=== PATIENT | female | born 1960 | race African-American/Black ===

== ENCOUNTER → 2016-08-27 | Outpatient (CLI) | payer MEDICARE | LOC: WI 08:43 | PROVIDERS: ATTEND Nurse Practitioner Psychiatric/Mental Health | DX: R10.9 Unspecified abdominal pain (principal) | CPT/HCPCS: 76700 ==

== ENCOUNTER 2016-11-11 09:29 | Emergency (ER) | payer MEDICARE ==
--- NOTE | 2016-11-11 09:54 | ER Document Report ---
ED Medical Screen (RME) - General Chief Complaint: Flank Pain Stated Complaint: LEFT SIDA PAIN Time Seen by Provider: 11/11/16 09:42 Notes: Patient is complaining of pain in her upper left side, just below the rib margin in the left mid axillary line for about 4 or 5 months. She says it feels like a spasm and comes and goes in waves. She has seen her local provider and has been worked up with ultrasound and other lab studies, but says she has never had a CT scan. She did have a problem with her pancreas 5 or 6 months ago and had a stent placed in her pancreas [place] about 6 months ago. Her pain has continued. She has had nausea but not vomiting. No diarrhea. Having normal bowel movements. Some burning with urination. Denies fever. Patient has had an appendectomy, hysterectomy, cholecystectomy, and an umbilical hernia repair. PMH: Hypertension, chronic back pain, migraine headaches. TRAVEL OUTSIDE OF THE [place] IN LAST 30 DAYS: No - Related Data Allergies/Adverse Reactions: amoxicillin trihydrate [From Augmentin] Allergy (Intermediate, Verified 09:31) rash Potassium Clavulanate * [From Augmentin] Allergy (Intermediate, Verified 09:31) rash Sulfa (Sulfonamide Antibiotics) Allergy (Intermediate, Verified 11/11/16 09:31) rash Past Medical History - Past Medical History Cardiac Medical History: Reports: Hx Hypertension Neurological Medical History: Reports: Hx Migraine Renal/ Medical History: Denies: Hx Peritoneal Dialysis Malignancy Medical History: Reports: Hx Breast Cancer Past Surgical History: Reports: Hx Breast Surgery, Hx Cholecystectomy, Hx Hysterectomy Physical Exam - Vital signs Vitals: Temp Pulse Resp BP Pulse Ox 98.1 F 107 H 18 181/110 H 100 11/11/16 09:31 11/11/16 09:31 11/11/16 09:31 11/11/16 09:31 11/11/16 09:31 Course - Vital Signs Vital signs: Temp Pulse Resp BP Pulse Ox 98.1 F 107 H 18 181/110 H 100 11/11/16 09:31 11/11/16 09:31 11/11/16 09:31 11/11/16 09:31 11/11/16 09:31
--- NOTE | 2016-11-11 10:13 | ER Document Report ---
ED General - General Mode of Arrival: Ambulatory Information source: Patient TRAVEL OUTSIDE OF THE [place] IN LAST 30 DAYS: No - HPI Onset: Other - Refer to HPI notes Associated symptoms: Nausea, Other - burning with urination Similar symptoms previously: Yes Recently seen / treated by doctor: Yes - Dr. Vo <JED ROBLES - Last Filed: 11/11/16 10:29> <WOOD CÁRDENAS - Last Filed: 11/11/16 13:27> - General Chief Complaint: Flank Pain Stated Complaint: LEFT SIDA PAIN Time Seen by Provider: 11/11/16 09:42 Notes: Patient is a 56-year-old female presenting to the emergency department for pain in her left rib and left side. Patient states she has had this pain for about 5 months. Patient states that her pain is waxing and waning and is like a spasm. Patient states that when the pain is worse and more intense than it has been in the past. Patient is able to relieve the pain some if she stands straight or twists a certain way while standing. Patient told the physician in triage that she also had some burning with urination and some nausea. Patient has seen her primary care physician, Dr. Vo, about this pain and has had an ultrasound and other labs completed but has not had a CT. Patient has chronic back pain and takes 10 mg of Percocet, 3 times a day. Patient has degenerative disc disease and arthritis in her back. Patient also had a pancreatic stent placed 5-6 months ago in [place]; patient states the stent is out now. Patient denies fever, vomiting, or diarrhea. (JED ROBLES) - Related Data Allergies/Adverse Reactions: amoxicillin trihydrate [From Augmentin] Allergy (Intermediate, Verified 09:31) rash Potassium Clavulanate * [From Augmentin] Allergy (Intermediate, Verified 09:31) rash Sulfa (Sulfonamide Antibiotics) Allergy (Intermediate, Verified 11/11/16 09:31) rash Past Medical History - General Information source: Patient - Social History Smoking Status: Never Smoker Family History: Hypertension Patient has suicidal ideation: No Patient has homicidal ideation: No - Past Medical History Cardiac Medical History: Reports: Hx Hypertension Neurological Medical History: Reports: Hx Migraine Malignancy Medical History: Reports: Hx Breast Cancer Musculoskeltal Medical History: Reports Hx Arthritis, Reports Other - Degenerative disc disease Past Surgical History: Reports: Hx Appendectomy, Hx Breast Surgery - left lumpectomy, Hx Cholecystectomy, Hx Hysterectomy, Hx Pancreatic Surgery - stent placed <JED ROBLES - Last Filed: 11/11/16 10:29> Review of Systems - Review of Systems Constitutional: No symptoms reported EENT: No symptoms reported Cardiovascular: No symptoms reported Respiratory: No symptoms reported Gastrointestinal: See HPI, Nausea Genitourinary: See HPI, Burning Female Genitourinary: No symptoms reported Musculoskeletal: See HPI Skin: No symptoms reported Hematologic/Lymphatic: No symptoms reported Neurological/Psychological: No symptoms reported -: Yes All other systems reviewed and negative <JED ROBLES - Last Filed: 11/11/16 10:29> Physical Exam - Vital signs Interpretation: Hypertensive - General General appearance: Appears well, Alert In distress: Mild - HEENT Head: Normocephalic, Atraumatic Eyes: Normal Pupils: PERRL Mucous membranes: Moist - Respiratory Respiratory status: No respiratory distress Chest status: Nontender Breath sounds: Normal Chest palpation: Normal - Cardiovascular Rhythm: Regular Heart sounds: Normal auscultation Murmur: No - Abdominal Inspection: Normal Distension: No distension Bowel sounds: Normal Tenderness: Nontender Organomegaly: No organomegaly - Back Back: Tender - tenderness over the left posterior lateral ribs; patient describes pain to be in this area and underneath her ribs as well - Extremities General upper extremity: Normal inspection, Normal ROM, Normal strength General lower extremity: Normal inspection, Normal ROM, Normal strength - Neurological Neuro grossly intact: Yes Cognition: Normal Orientation: AAOx4 [place] Coma Scale Eye Opening: Spontaneous [place] Coma Scale Verbal: Oriented [place] Coma Scale Motor: Obeys Commands [place] Coma Scale Total: 15 Speech: Normal - Psychological Associated symptoms: Normal affect, Normal mood - Skin Skin Temperature: Warm Skin Moisture: Dry <EJD ROBLES - Last Filed: 11/11/16 10:29> <WOOD CÁRDENAS - Last Filed: 11/11/16 13:27> - Vital signs Vitals: Temp Pulse Resp BP Pulse Ox 98.1 F 107 H 18 181/110 H 100 11/11/16 09:31 11/11/16 09:31 11/11/16 09:31 11/11/16 09:31 11/11/16 09:31 Course - Laboratory Result Diagrams: 11/11/16 11:27 11/11/16 11:27 - Diagnostic Test Radiology reviewed: Image reviewed, Reports reviewed - Double contrasted CT scan does not show any acute abnormalities. There is some ductal dilatation consistent with prior cholecystectomy. <WOOD CÁRDENAS - Last Filed: 11/11/16 13:27> - Vital Signs Vital signs: Temp Pulse Resp BP Pulse Ox 98.1 F 107 H 18 181/110 H 100 11/11/16 09:31 11/11/16 09:31 11/11/16 09:31 11/11/16 09:31 11/11/16 09:31 - Laboratory Laboratory results interpreted by me: 11/11/16 11/11/16 09:52 11:27 Est GFR (Non-Af Amer) 51 L Urine Blood SMALL H Ur Leukocyte Esterase TRACE H Discharge <JED ROBLES - Last Filed: 11/11/16 10:29> <WOOD CÁRDENAS - Last Filed: 11/11/16 13:27> - Discharge Clinical Impression: Left flank pain, chronic High blood pressure Qualifiers: Hypertension type: essential hypertension Qualified Code(s): I10 - Essential ( primary) hypertension Condition: Stable Disposition: HOME, SELF-CARE Additional Instructions: Your lab work and CT scans do not show any abnormalities. Your left flank and rib pain appears to be musculoskeletal in origin. Your blood pressure was elevated today. Be sure you are taking your blood pressure medications. You should continue your regular medications and follow-up with your doctor for further treatment as needed. RETURN TO THE EMERGENCY ROOM IF ANY NEW OR WORSENING SYMPTOMS. Scribe Attestation: 11/11/16 13:27 I personally performed the services described in the documentation, reviewed and edited the documentation which was dictated to the scribe in my presence, and it accurately records my words and actions. (WOOD CÁRDENAS) Scribe Documentation - Scribe Written by Ashok:: Ashok Farmer, 11/11/16 10:43 acting as scribe for :: Gino <JED ROBLES - Last Filed: 11/11/16 10:29>
[2016-11-11 10:14] LABS: APPEARANCE,URINE CLEAR; BILIRUBIN,URINE NEGATIVE (NEGATIVE); GLUCOSE, URINE NEGATIVE (NEGATIVE); KETONES,URINE NEGATIVE (NEGATIVE); LEUKOCYTE ESTERASE,URINE TRACE (NEGATIVE); NITRITE,URINE NEGATIVE (NEGATIVE); PROTEIN,URINE NEGATIVE (NEGATIVE); URINE SPECIFIC GRAVITY 1.003; UROBILINOGEN,URINE NEGATIVE mg/dL (<2.0)
--- NOTE | 2016-11-11 10:43 | RADIOLOGY REPORT (SQ) ---
EXAM DESCRIPTION: CHEST PA/LAT COMPLETED DATE/TIME: 11/11/2016 10:30 am REASON FOR STUDY: Pain in lower left side/rib margin COMPARISON: Two-view chest 07/29/2012 EXAM PARAMETERS: NUMBER OF VIEWS: two views TECHNIQUE: Digital Frontal and Lateral radiographic views of the chest acquired. RADIATION DOSE: NA LIMITATIONS: none FINDINGS: LUNGS AND PLEURA: No opacities, masses or pneumothorax. No pleural effusion. MEDIASTINUM AND HILAR STRUCTURES: No masses or contour abnormalities. HEART AND VASCULAR STRUCTURES: Heart normal size. No evidence for failure. BONES: No acute findings. HARDWARE: Surgical clips left axilla. Clips right upper quadrant post cholecystectomy OTHER: No other significant finding. IMPRESSION: No acute findings TECHNICAL DOCUMENTATION: JOB ID: [id number] [employer]- All Rights Reserved
[2016-11-11 11:43] LABS: ABSOLUTE EOSINOPHILS # (AUTO) 0.1 10^3/uL (0.0-0.6); ABSOLUTE LYMPHOCYTES (AUTO) 2.1 10^3/uL (0.5-4.7); ABSOLUTE MONOCYTES (AUTO) 0.5 10^3/uL (0.1-1.4); ABSOLUTE NEUT (AUTO) 3.1 10^3/uL (1.7-8.2); BASOPHILS % (AUTO) 0.5 % (0-2); EOSINOPHILS % (AUTO) 1.4 % (0-6); HEMATOCRIT 38.4 % (36.0-47.0); HEMOGLOBIN 12.7 g/dL (12.0-15.5); HGB HCT DIFFERENCE -0.3; LYMPHOCYTES % (AUTO) 35.8 % (13-45); MEAN CORPUSCULAR HEMOGLOBIN 29.1 pg (27.0-33.4); MEAN CORPUSCULAR HGB CONC 33.1 g/dL (32.0-36.0); MEAN CORPUSCULAR VOLUME 88 fl (80-97); MONOCYTES % (AUTO) 9.4 % (3-13); RED BLOOD COUNT 4.36 10^6/uL (3.72-5.28); RED CELL DISTRIBUTION WIDTH 12.6 % (11.5-14.0); SEGMENTED NEUTROPHILS % (AUTO) 52.9 % (42-78); WHITE BLOOD COUNT 5.8 10^3/uL (4.0-10.5)
[2016-11-11 11:56] LABS: ALANINE AMINOTRANSFERASE 21 U/L (9-52); ALBUMIN 4.1 g/dL (3.5-5.0); ALKALINE PHOSPHATASE 89 U/L (38-126); ANION GAP 10 (5-19); ASPARTATE AMINO TRANSFERASE 27 U/L (14-36); BILIRUBIN,DIRECT 0.2 mg/dL (0.0-0.4); BILIRUBIN,TOTAL 0.5 mg/dL (0.2-1.3); BLOOD UREA NITROGEN 10 mg/dL (7-20); CALCIUM 9.8 mg/dL (8.4-10.2); CARBON DIOXIDE 27 mmol/L (22-30); CHLORIDE 105 mmol/L (98-107); CREATININE RESULT 1.11 mg/dL (0.52-1.25); GLUCOSE 92 mg/dL (75-110); LIPASE 150.3 U/L (23-300); POTASSIUM 4.2 mmol/L (3.6-5.0); SODIUM 142.1 mmol/L (137-145); TOTAL PROTEIN 7.7 g/dL (6.3-8.2)
--- NOTE | 2016-11-11 13:05 | RADIOLOGY REPORT (SQ) ---
EXAM DESCRIPTION: CT ABD/PELVIS WITH IV ORAL COMPLETED DATE/TIME: 11/11/2016 12:41 pm REASON FOR STUDY: pain in the left side/LUQ COMPARISON: 10/16/2015 TECHNIQUE: CT scan of the abdomen and pelvis performed using helical scanning technique with dynamic intravenous contrast injection. Oral contrast. Images reviewed with lung, soft tissue, and bone win dows. Reconstructed coronal and sagittal MPR images reviewed. Delayed images for evaluation of the ur inary system also acquired. All images stored on PACS. All CT scanners at this facility use dose modulation, iterative reconstruction, and/or weight based d osing when appropriate to reduce radiation dose to as low as reasonably achievable (ALARA). [facility]: Dose Right [facility]: CareDose [facility]: Dose Right [facility]: Teradose 4D [facility]: Probe Manufacturing CONTRAST TYPE AND DOSE: 77mL Isovue 370- low osmolar. RENAL FUNCTION: Creatinine 1.1 BUN 10 RADIATION DOSE: 19.7mGy. LIMITATIONS: None. FINDINGS: LOWER CHEST: No significant findings. No nodules or infiltrates. LIVER: There is mild intrahepatic ductal dilatation that appears to be associated with a prior cholec ystectomy. The liver is otherwise unremarkable. SPLEEN: Normal size. No focal lesions. PANCREAS: No masses. No significant calcifications. No adjacent inflammation or peripancreatic fluid collections. Pancreatic duct not dilated. GALLBLADDER: Surgically absent. ADRENAL GLANDS: No significant masses or asymmetry. RIGHT KIDNEY AND URETER: No solid masses. No significant calcifications. No hydronephrosis or hyd roureter. LEFT KIDNEY AND URETER: No solid masses. No significant calcifications. No hydronephrosis or hydr oureter. AORTA AND VESSELS: No aneurysm. No dissection. Renal arteries, SMA, celiac without stenosis. RETROPERITONEUM: No retroperitoneal adenopathy, hemorrhage or masses. BOWEL AND PERITONEAL CAVITY: No masses or inflammatory changes. No free fluid or peritoneal masses. APPENDIX: Normal. PELVIS: The uterus is absent. There is no adnexal mass or fluid collection. The urinary bladder is normal. ABDOMINAL WALL: No masses. No hernias. BONES: No significant or acute findings. OTHER: No other significant finding. IMPRESSION: 1. Mild ductal dilatation secondary to prior cholecystectomy. 2. No acute abnormality is seen in the abdomen or pelvis. TECHNICAL DOCUMENTATION: JOB ID: [id number] Quality ID # [id number]: Final reports with documentation of one or more dose reduction techniques (e.g., Au tomated exposure control, adjustment of the mA and/or kV according to patient size, use of iterative reconstruction technique) 2010 [employer]- All Rights Reserved
[2016-11-11 13:29] VITALS: BP 124/87
== END 2016-11-11 13:35 | disposition home or self-care (01) ==
LOC: ER 09:29
DX: R10.9 Unspecified abdominal pain (principal); G89.29 Other chronic pain; I10 Essential (primary) hypertension; R30.0 Dysuria; Z85.3 Personal history of malignant neoplasm of breast; Z90.49 Acquired absence of other specified parts of digestive tract; Z90.710 Acquired absence of both cervix and uterus; Z88.2 Allergy status to sulfonamides; Z88.0 Allergy status to penicillin
CPT/HCPCS: 36415; 71020; 74177; 80053; 81001; 83690; 85025; 99284

== ENCOUNTER → 2017-03-18 | Outpatient (CLI) | payer MEDICARE ==
--- NOTE | 2017-03-18 17:55 | WOMENS IMAGING REPORT ---
EXAM DESCRIPTION: 3D SCREENING MAMMO BILAT COMPLETED DATE/TIME: 03/18/2017 1:22 pm REASON FOR STUDY: ROUTINE SCREENING; Z12.31 Z12.31 ENCNTR SCREEN MAMMOGRAM FOR MALIGNANT NEOPLASM O F RIMA COMPARISON: Multiple since 2009 TECHNIQUE: Standard craniocaudal and mediolateral oblique views of each breast recorded using digita l acquisition and breast tomosynthesis. LIMITATIONS: None. FINDINGS: No masses, calcifications or architectural distortion. No areas of suspicion. Read with the assistance of CAD. .[facility] - R2 Cenova Version 1.3 .[facility] - R2 Cenova Version 1.3 .[facility] - R2 Cenova Version 2.4 .[facility] - R2 Cenova Version 2.4 .[facility] - R2 [employer] Organizational Version 9.2 IMPRESSION: NORMAL MAMMOGRAM. BIRADS 1. BREAST DENSITY: d. The breasts are extremely dense, which lowers the sensitivity of mammography. BIRAD: 1 NEGATIVE RECOMMENDATION: ROUTINE SCREENING Please continue yearly bilateral screening tomosynthesis in March 2018. COMMENT: The patient has been notified of the results by letter per [place] requirements. Additional no tification policies are in place for contacting patient with suspicious or incomplete findings. Quality ID #225: The [employer] recommends an annual screening mammogram for women aged 40 years or over. This facility utilizes a reminder system to ensure that all patients receive reminder letters, and/or direct phone calls for appointments. This includes reminders for routine scr eening mammograms, diagnostic mammograms, or other Breast Imaging Interventions when appropriate. Th is patient will be placed in the appropriate reminder system. The [employer] (ACR) has developed recommendations for screening MRI of the breast s in certain patient populations, to be used in conjunction with mammography. Breast MRI surveillanc e may be appropriate for women with more than 20% lifetime risk of developing breast cancer as deter mined by genetic testing, significant family history of the disease, or history of mantle radiation f or Hodgkins Disease. ACR Practice Guidelines 2008. DBT Technology DBT is a type of tomographic mammography. With conventional mammography, overlapping breast tissue ma y make lesions difficult to detect, even with good compression. DBT uses an x-ray tube that rotates a round the breast, taking images at different angles. These images are then combined to create thin sl ices of the breast that the radiologist can view as a 3D reconstruction. The [employer] unit can perform full-field digital mammograms (2D imaging); or DBT (3D imaging); or both, in a combination mode that quickly performs both the mammogram and the tomosynthesis scan while the breast is still compressed. PQRS 6045F: Fluoroscopic imaging is not utilized for breast tomosynthesis. TECHNICAL DOCUMENTATION: FINDING NUMBER: (1) ASSESSMENT: (1) JOB ID: [id number] [employer]- All Rights Reserved
== END ==
LOC: RAD 13:01
PROVIDERS: ATTEND Internal Medicine Geriatric Medicine
DX: Z12.31 Encounter for screening mammogram for malignant neoplasm of breast (principal)
CPT/HCPCS: 77063; G0202; 77067

== ENCOUNTER 2017-08-14 13:33 | Emergency (ER) | payer MEDICARE, MEDICAID ==
[2017-08-14] MEDS ORDERED: ACETAMINOPHEN 325 MG TABLET PO ONE (14:53)
--- NOTE | 2017-08-14 14:53 | ER Document Report ---
HPI - HPI Patient complains to provider of: right SC joint swelling Pain Level: 3 Context: Patient is a 57-year-old female presents emergency department with right SC joint swelling. Patient states that she has had a cough for a couple of days. She is having a coughing fit last evening when she got up to go to the bathroom and took the mirror and she noticed some swelling. She states that today she had some pain lifting her shoulder but otherwise denies any direct shoulder pain , trauma. She also admits to discomfort with neck rotation along her right SCM. Otherwise healthy female with a history of breast cancer that is in remission - REPRODUCTIVE Reproductive: DENIES: : Past Medical History - Social History Smoking Status: Never Smoker Family History: Hypertension - Past Medical History Cardiac Medical History: Reports: Hx Hypertension Neurological Medical History: Reports: Hx Migraine Renal/ Medical History: Denies: Hx Peritoneal Dialysis Malignancy Medical History: Reports: Hx Breast Cancer Musculoskeltal Medical History: Reports Hx Arthritis Past Surgical History: Reports: Hx Appendectomy, Hx Breast Surgery - left lumpectomy, Hx Cholecystectomy, Hx Hysterectomy, Hx Pancreatic Surgery - stent placed Vertical Provider Document - CONSTITUTIONAL Agree With Documented VS: Yes Notes: PHYSICAL EXAM GENERAL: Alert, interacts well. HEAD: Normocephalic, atraumatic. EYES: Pupils equal, round, and reactive to light. Extraocular movements intact. ENT: Oral mucosa moist, tongue midline. NECK: Full range of motion. Supple. Trachea midline. LUNGS: Visible soft tissue swelling but is nontender to palpation with no palpable or visible deformity. Supraclavicular nodes nonpalpable bilaterally clear to auscultation bilaterally, no wheezes, rales, or rhonchi. No respiratory distress. Right SCM with HEART: Regular rate and rhythm. No murmurs, gallops, or rubs. EXTREMITIES: Moves all 4 extremities spontaneously but has pain with right shoulder abduction. No edema, radial pulses 2/4 bilaterally. No cyanosis. Strength otherwise 5 out of 5 bilaterally in upper extremity NEUROLOGICAL: Alert and oriented x4. Normal speech. PSYCH: Normal affect, normal mood. SKIN: Warm, dry, normal turgor. No rashes or lesions noted. - INFECTION CONTROL TRAVEL OUTSIDE OF THE [place] IN LAST 30 DAYS: No - RESPIRATORY O2 Sat by Pulse Oximetry: 98 Course - Re-evaluation Re-evalutation: 08/14/17 17:01 Patient is a 57-year-old female is hemodynamically stable, no acute distress and afebrile. No evidence of dislocation, fracture of the clavicle, any underlying cardiopulmonary process. Patient has been resting comfortably with multiple reassessments. Suspect an underlying joint irritation/inflammation will place in sling with instruction to follow-up with orthopedics and primary care. Discussed strict return precautions otherwise patient is stable for discharge home - Vital Signs Vital signs: Temp Pulse Resp BP Pulse Ox 98.3 F 103 H 17 151/103 H 98 08/14/17 13:42 08/14/17 13:42 08/14/17 13:42 08/14/17 13:42 08/14/17 13:42 - Diagnostic Test Radiology reviewed: Image reviewed, Reports reviewed Procedures - Immobilization Right Shoulder Pre-Proc Neuro Vasc Exam: Normal Immobilizer type: Shoulder immobilizer Performed by: PCT Post-Proc Neuro Vasc Exam: Unchanged from pre-exam Alignment checked and good: Yes Discharge - Discharge Clinical Impression: Sternoclavicular joint pain Qualifiers: Laterality: right Qualified Code(s): M25.511 - Pain in right shoulder Condition: Good Disposition: HOME, SELF-CARE Additional Instructions: Your presentation is consistent today with where clavicle meets her sternum at that joint related to inflammation. Your x-ray does not show any evidence of dislocation or fracture/break. You have been placed in a sling temporarily and instructed to follow-up with Dr. Avelar for a recheck this week You do not have evidence of a fracture on today's xrays. Your pain is likely to do soft tissue swelling and inflammation. This can last up to 6 weeks before completely resolving. You should continue to apply ice to the area regularly, keep the affected area elevated, and take ibuprofen 600mg every 6 hours as needed for pain. Please return if you have worsening pain, weakness, numbness, notice increasing redness or swelling to the area, develop a fever, or have any other symptoms that are concerning to you. Forms: Elevated Blood Pressure Referrals: EDY ARIAS MD [Primary Care Provider] - Follow up in 1 week DARION AVELAR DO [ACTIVE STAFF] - Follow up tomorrow JAVIER CAT MD [COMMUNITY BASED STAFF] - Follow up as needed
--- NOTE | 2017-08-14 15:34 | RADIOLOGY REPORT (SQ) ---
EXAM DESCRIPTION: CLAVICLE RIGHT COMPLETED DATE/TIME: 08/14/2017 3:26 pm REASON FOR STUDY: SC joint swelling, pain with ROM COMPARISON: 08/14/2013. NUMBER OF VIEWS: Two views. TECHNIQUE: Frontal and angled images were acquired of the right clavicle. LIMITATIONS: None. FINDINGS: MINERALIZATION: Normal. BONES: No acute fracture or dislocation. No worrisome bone lesions. No significant osteophytes. SOFT TISSUES: No obvious swelling or foreign body. OTHER: No other significant finding. IMPRESSION: NEGATIVE STUDY OF THE RIGHT CLAVICLE. NO EXPLANATION FOR PAIN. TECHNICAL DOCUMENTATION: JOB ID: [id number] [employer] All Rights Reserved Reading location - IP/workstation name: [email or web address]
--- NOTE | 2017-08-14 16:45 | RADIOLOGY REPORT (SQ) ---
EXAM DESCRIPTION: CHEST PA/LAT COMPLETED DATE/TIME: 08/14/2017 4:30 pm REASON FOR STUDY: right shoulder/SC joint pain, cough COMPARISON: 11/11/2016. EXAM PARAMETERS: NUMBER OF VIEWS: two views TECHNIQUE: Digital Frontal and Lateral radiographic views of the chest acquired. RADIATION DOSE: NA LIMITATIONS: none FINDINGS: LUNGS AND PLEURA: No opacities, masses or pneumothorax. No pleural effusion. MEDIASTINUM AND HILAR STRUCTURES: No masses or contour abnormalities. HEART AND VASCULAR STRUCTURES: Heart normal size. No evidence for failure. BONES: No acute findings. HARDWARE: Surgical clips in the soft tissues on the left. OTHER: No other significant finding. IMPRESSION: NO SIGNIFICANT RADIOGRAPHIC FINDING IN THE CHEST. TECHNICAL DOCUMENTATION: JOB ID: [id number] [employer]- All Rights Reserved Reading location - IP/workstation name: [email or web address]
[2017-08-14 17:26] VITALS: BP 132/93
== END 2017-08-14 17:27 | disposition home or self-care (01) ==
LOC: ER 13:33
DX: M25.511 Pain in right shoulder (principal); R05 Cough; I10 Essential (primary) hypertension; Z85.3 Personal history of malignant neoplasm of breast
CPT/HCPCS: 99283; 71046; 73000; L3650; A9270

== ENCOUNTER → 2017-10-08 | Outpatient (CLI) | payer MEDICARE, MEDICAID ==
[2017-10-08 11:12] LABS: ALANINE AMINOTRANSFERASE 26 U/L (9-52); ALBUMIN 4.3 g/dL (3.5-5.0); ALKALINE PHOSPHATASE 131 U/L (38-126); ANION GAP 15 (5-19); ASPARTATE AMINO TRANSFERASE 27 U/L (14-36); BILIRUBIN,DIRECT 0.5 mg/dL (0.0-0.4); BILIRUBIN,TOTAL 0.5 mg/dL (0.2-1.3); BLOOD UREA NITROGEN 9 mg/dL (7-20); CALCIUM 9.6 mg/dL (8.4-10.2); CARBON DIOXIDE 27 mmol/L (22-30); CHLORIDE 103 mmol/L (98-107); GLUCOSE 104 mg/dL (75-110); POTASSIUM 4.7 mmol/L (3.6-5.0); SODIUM 145.3 mmol/L (137-145); TOTAL PROTEIN 7.9 g/dL (6.3-8.2)
== END ==
LOC: OD 10:04
PROVIDERS: ATTEND Internal Medicine Geriatric Medicine
DX: N18.9 Chronic kidney disease, unspecified (principal)
CPT/HCPCS: 36415; 80053

== ENCOUNTER → 2019-04-17 | Outpatient (CLI) | payer MEDICARE, MEDICAID ==
--- NOTE | 2019-04-18 08:54 | WOMENS IMAGING REPORT ---
EXAM DESCRIPTION: 3D SCREENING MAMMO BILAT COMPLETED DATE/TIME: 04/17/2019 1:15 pm REASON FOR STUDY: Z12.31 ENCOUNTER FOR SCREENING MAMMOGRAM FOR MALIGNANT NEOPLASM OF BREAST Z12.31 ENCNTR SCREEN MAMMOGRAM FOR MALIGNANT NEOPLASM OF RIMA COMPARISON: 04/13/2018 and 03/18/2017 EXAM PARAMETERS: Standard craniocaudal and mediolateral oblique views of each breast recorded using digital acquisition and breast tomosynthesis. Read with the assistance of CAD. [facility] Tr[employer] Operator Version 9.2 LIMITATIONS: None. FINDINGS: Findings present which are benign by mammographic criteria. No suspicious masses, calcific ations or architectural distortion. Pertinent benign findings: Postop scarring on the right Benign mammographic findings may include one or more of the following: Smooth masses, popcorn/rim/coa rse calcifications, asymmetries, post-procedure changes, and lesions with long-standing stability. IMPRESSION: BENIGN MAMMOGRAPHIC FINDINGS. BIRADS 2 BREAST DENSITY: c. The breasts are heterogeneously dense, which may obscure small masses. BIRAD: ASSESSMENT: 2 BENIGN FINDING(S) RECOMMENDATION: ROUTINE SCREENING COMMENT: The patient has been notified of the results by letter per MQSA requirements. Additional no tification policies are in place for contacting patient with suspicious or incomplete findings. Quality ID #[id number]: The [employer] recommends an annual screening mammogram for women aged 40 years or over. This facility utilizes a reminder system to ensure that all patients receive reminder letters, and/or direct phone calls for appointments. This includes reminders for routine scr eening mammograms, diagnostic mammograms, or other Breast Imaging Interventions when appropriate. Th is patient will be placed in the appropriate reminder system. TECHNICAL DOCUMENTATION: FINDING NUMBER: (1) ASSESSMENT: (1) JOB ID: [id number] [employer]. [employer]- All Rights Reserved Reading location - IP/workstation name: [email or web address] [email or web address] GARMENT [email or web address]
== END ==
LOC: WI 10:01
PROVIDERS: ATTEND Internal Medicine Geriatric Medicine
DX: Z12.31 Encounter for screening mammogram for malignant neoplasm of breast (principal)
CPT/HCPCS: 77063; 77067

== ENCOUNTER → 2020-04-23 | Outpatient (CLI) | payer MEDICARE, MEDICAID ==
--- NOTE | 2020-04-23 11:44 | WOMENS IMAGING REPORT ---
EXAM DESCRIPTION: 3D DX MAMMO BILAT; U/S BREAST UNILAT LIMITED IMAGES COMPLETED DATE/TIME: 04/23/2020 10:28 am; 04/23/2020 10:59 am REASON FOR STUDY: C50.919 MALIGNANT NEOPLASM OF UNSP SITE OF UNSPECIFIED FEMALE BREAST; LEFT AXILLA RY LUMP N63.32 N63.32 UNSPECIFIED LUMP IN AXILLARY TAIL OF THE LEFT BREAST C50.919 MALIGNANT NEOPLA SM OF UNSP SITE OF UNSPECIFIED FEMAL COMPARISON: 04/17/2019 and 04/13/2018. EXAM PARAMETERS: Standard craniocaudal and mediolateral oblique views of each breast recorded using digital acquisition and breast tomosynthesis. Additional true lateral images of the left breast acquired with tomosynthesis. Read with the assistance of CAD: .[employer] Version 9.2 LIMITATIONS: None. FINDINGS: RIGHT BREAST MASSES: No suspicious masses. CALCIFICATIONS: No new or suspicious calcifications. ARCHITECTURAL DISTORTION: None. ASYMMETRY: None noted. OTHER: No other significant findings. LEFT BREAST MASSES: No suspicious masses. CALCIFICATIONS: No new or suspicious calcifications. ARCHITECTURAL DISTORTION: Stable surgical changes. ASYMMETRY: None noted. OTHER: No other significant finding. BREAST ULTRASOUND: TECHNIQUE: Static and dynamic grayscale images acquired of the left breast in the specific areas of c linical/mammographic concern, left axilla. Selected color Doppler images recorded. ELASTOGRAPHY PERFORMED: No. LIMITATIONS: None. FINDINGS: MASS: 3 x 8 mm hyperechoic mass located just below the skin surface. Homogeneous echogenicity, simil ar to the adjacent fatty tissue. Oriented parallel to the skin. No distal shadowing. ELASTOGRAPHY CHARACTERISTICS:Not applicable. OTHER: No other significant finding. IMPRESSION: Stable mammographic appearance of both breasts. Surgical changes in the left breast. S mall subcutaneous lipoma in the left axilla. No worrisome findings. BREAST DENSITY: c. The breasts are heterogeneously dense, which may obscure small masses. BIRAD: ASSESSMENT: 2 Benign findings. RECOMMENDATION: RECOMMENDED FOLLOW UP: Birads 1 or 2: The patient should resume routine screening . SPECIFIC INTERVENTION/IMAGING/CONSULTATION RECOMMENDED:No additional intervention/ imaging/consultati on needed at this time. COMMUNICATION:The imaging findings were not discussed with the patient. Her referring provider has be en notified of the findings. COMMENT: The patient has been notified of the results by letter per [place] requirements. Additional no tification policies are in place for contacting patient with suspicious or incomplete findings. Quality ID #[id number]: The [employer] recommends an annual screening mammogram for women aged 40 years or over. This facility utilizes a reminder system to ensure that all patients receive reminder letters, and/or direct phone calls for appointments. This includes reminders for routine scr eening mammograms, diagnostic mammograms, or other Breast Imaging Interventions when appropriate. Th is patient will be placed in the appropriate reminder system. TECHNICAL DOCUMENTATION: FINDING NUMBER: (1) ASSESSMENT: (1) JOB ID: [id number] 2010 [employer]- All Rights Reserved Reading location - IP/workstation name: [email or web address]
--- OUTSIDE RECORDS SUMMARY | 2020-04-24 18:26 | XMS REPORT ---
:1960 [facility] [place] [place] [address] [place] [address] Care Team Providers Name Role Phone OSUNKOYA Primary Care Physician Unavailable Allergies, Adverse Reactions, Alerts Allergy Name Allergy Status Severity Reaction(s) Onset Inactive Treat ing Comments Type Date Date Clinician Hydromorphone Allergy to Active substance - 00:00: 00 Morphine Allergy to Active 2011-06 substance 2- 00:00: 00 Skelaxin Allergy to Active 2011-06 substance 2-14 00:00: 00 Augmentin Allergy to Active substance Butrans Allergy to Active substance Dilaudid Allergy to Active Moderate Itching substance Morphine Allergy to Active substance Skelaxin Allergy to Active substance Sulfa Allergy to Active (Sulfonamide substance Antibiotics) Tramadol Allergy to Active Itching substance Medications Ordered Filled Start Stop Current Ordering Indication Dosage Frequency Signature Comments Components Medication Medication Date Date Medication? Clinician (SIG) Name Name amitriptyli No 1 Q1D amitriptyl ne 50 mg 9- ine 50 mg tablet Take 00:00: tablet 1 tablet 00 Take 1 every day tablet by oral every day route. by oral route. ketorolac No Q1D ketorolac 60 mg/2 mL 7-10 60 mg/2 mL intramuscul 09:40: intramuscu ar 54 lar solutionInj solution ect 2 mL Inject 2 every day mL every by day by intramuscul intramuscu ar route. lar route. Astepro No 2spray( BID Astepro 0.15 % s) 0.15 % (205.5 mcg) (205.5 nasal spray mcg) nasal [place] 2 spray sprays [place] 2 twice a day sprays by twice a intranasal day by route. intranasal route. Ecotrin Low No 1 Q1D Ecotrin Strength 81 Low mg Strength tablet,ente 81 mg mee coated tablet,ent Take 1 fiordaliza tablet coated every day Take 1 by oral tablet route for every day 365 days. by oral route for 365 days. gabapentin No gabapentin 300 mg 300 mg capsule capsule TAKE ONE TAKE ONE CAPSULE BY CAPSULE BY MOUTH TWICE MOUTH A DAY TWICE A DAY metoclopram No metoclopra arron 5 mg mide 5 mg tablet Take tablet 1 tablet Take 1 every day tablet by oral every day route as by oral needed. route as needed. Movantik 25 No Movantik mg tablet 25 mg Take 1 tablet tablet Take 1 every day tablet by oral every day route for by oral 30 days. route for 30 days. ondansetron No ondansetro 4 mg n 4 mg disintegrat disintegra ing tablet ting Take 1 tablet tablet Take 1 every 4 tablet hours by every 4 oral route. hours by oral route. rizatriptan No 1 rizatripta 10 mg n 10 mg tablet Take tablet 1 tablet as Take 1 needed by tablet as oral route needed by as needed oral route for 30 as needed days. for 30 days. Premarin No 1applic Premarin 0.625 ation(s 0.625 mg/gram ) mg/gram vaginal vaginal cream cream Insert 1 Insert 1 application applicatio as needed n as by vaginal needed by route for vaginal 90 days. route for 90 days. ketorolac No 2mL Q1D ketorolac 60 mg/2 mL 60 mg/2 mL intramuscul intramuscu ar solution lar Inject 2 mL solution every day Inject 2 by mL every intramuscul day by ar route. intramuscu lar route. topiramate No topiramate 25 mg 25 mg tablet tablet doxycycline No 1 BID doxycyclin monohydrate e 100 mg monohydrat tablet Take e 100 mg 1 tablet tablet twice a day Take 1 by oral tablet route for 7 twice a days. day by oral route for 7 days. topiramate No topiramate 50 mg 50 mg tablet tablet Aimovig No Aimovig Autoinjecto Autoinject r 140 mg/mL or 140 subcutaneou mg/mL s subcutaneo auto-inject us or auto-injec tor Nucynta ER No Nucynta ER 50 mg 50 mg tablet,exte tablet,ext nded ended release release Pneumovax-2 No Pneumovax- 3 25 23 25 mcg/0.5 mL mcg/0.5 mL injection injection syringe syringe [id number] EXPIRES [id number] EXPIRES [id number] amitriptyli No amitriptyl ne 100 mg ine 100 mg tablet TAKE tablet 1 TABLET BY TAKE 1 MOUTH TABLET BY EVERYDAY AT MOUTH BEDTIME EVERYDAY AT BEDTIME amitriptyli No amitriptyl ne 25 mg ine 25 mg tablet tablet amlodipine No amlodipine 10 10 mg-valsarta mg-valsart n 320 mg an 320 mg tablet TAKE tablet ONE TABLET TAKE ONE BY MOUTH TABLET BY EVERY DAY MOUTH EVERY DAY atorvastati No atorvastat n 10 mg in 10 mg tablet TAKE tablet ONE TABLET TAKE ONE BY MOUTH TABLET BY EVERY DAY MOUTH EVERY DAY baclofen 10 No baclofen mg tablet 10 mg tablet fluticasone No fluticason propionate e 50 propionate mcg/actuati 50 on nasal mcg/actuat spray,suspe ion nasal nsion spray,susp ension hydrochloro No hydrochlor thiazide othiazide 12.5 mg 12.5 mg capsule capsule TAKE ONE TAKE ONE CAPSULE BY CAPSULE BY MOUTH EVERY MOUTH DAY EVERY DAY montelukast No montelukas 10 mg t 10 mg tablet TAKE tablet 1 TABLET(S) TAKE 1 EVERY DAY TABLET(S) BY ORAL EVERY DAY ROUTE FOR BY ORAL 30 DAYS. ROUTE FOR 30 DAYS. omeprazole No omeprazole 20 mg 20 mg capsule,del capsule,de ayed layed release release TAKE 2 TAKE 2 CAPSULES BY CAPSULES MOUTH IN BY MOUTH THE MORNING IN THE BEFORE MORNING BREAKFAST BEFORE BREAKFAST OxyContin No OxyContin 20 mg 20 mg tablet,uriel tablet,cru h sh resistant,e resistant, xtended extended release release TAKE 1 TAB TAKE 1 TAB PO Q 12 PO Q 12 HR30 DAY HR30 DAY SUPPLYDNF SUPPLYDN U 05/10/20 FU 05/10/20 propranolol No propranolo 20 mg l 20 mg tablet TAKE tablet ONE TABLET TAKE ONE BY MOUTH TABLET BY TWICE DAILY MOUTH TWICE DAILY sertraline No sertraline 25 mg 25 mg tablet tablet Symproic No Symproic 0.2 mg 0.2 mg tablet TAKE tablet ONE TABLET TAKE ONE BY MOUTH TABLET BY EVERY DAY MOUTH EVERY DAY Voltaren 1 No Voltaren 1 % topical % topical gel APPLY 4 gel APPLY GRAMS TO 4 GRAMS TO THE THE AFFECTED AFFECTED AREA FOUR AREA FOUR TIMES DAILY TIMES DAILY zolpidem 5 No zolpidem 5 mg tablet mg tablet TAKE ONE TAKE ONE TABLET BY TABLET BY MOUTH EVERY MOUTH NIGHT AT EVERY BEDTIME for NIGHT AT sleep BEDTIME for sleep amitriptyli No 1 Q1D amitriptyl ne 50 mg ine 50 mg tablet Take tablet 1 tablet Take 1 every day tablet by oral every day route. by oral route. levocetiriz No levocetiri ine 5 mg zine 5 mg tablet tablet rizatriptan No rizatripta 10 mg n 10 mg disintegrat disintegra ing tablet ting DISSOLVE tablet ONE TABLET DISSOLVE UNDER THE ONE TABLET TONGUE at UNDER THE ONSET OF TONGUE at migraine, ONSET OF may repeat migraine, IN 2 HOURS may repeat NEEDED IN 2 HOURS max 2 a day NEEDED max 2 a day Problems Condition Condition Condition Status Onset Resolution Last Treatin g Comments Name Details Category Date Date Treatment Clinician Date Vaginal Vaginal Problem Active dryness Dryness 6-24 00:00: 00 Syncope and Syncope and Problem Active collapse Collapse 3-17 00:00: 00 Migraine Migraine Problem Active 2016-06 with aura with Aura 0-05 00:00: 00 Seasonal Seasonal Problem Active 2016-06 allergic Allergic 0-05 rhinitis Rhinitis 00:00: 00 Therapeutic Therapeutic Problem Active 2016-06 opioid Opioid 0-05 induced Induced 00:00: constipatio Constipatio 00 n n Nontraumati Nontraumati Problem Active c rotator c Rotator 7-21 cuff tear Cuff Tear 00:00: 00 Chronic Chronic Problem Active renal Renal 7-24 impairment Impairment 00:00: 00 Shoulder Shoulder Problem Active joint pain Joint Pain 4-20 00:00: 00 Disorder of Disorder of Problem Active shoulder Shoulder 4-20 00:00: 00 Kidney Kidney Problem Active stone Stone 3-25 00:00: 00 Malignant Malignant Problem Active tumor of Tumor of 24 breast Breast 00:00: 00 Chronic Chronic Problem Active pain Pain 324 syndrome Syndrome 00:00: 00 Migraine Migraine Problem Active 324 00:00: 00 Essential Essential Problem Active hypertensio Hypertensio 3-24 n n 00:00: 00 Arthropathy Arthropathy Problem Active 24 00:00: 00 Chronic Chronic Problem Active 2015-0 back pain Back Pain 3-24 00:00: 00 Acquired Acquired Problem Active scoliosis Scoliosis 3-24 00:00: 00 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 Disease 00:00: 00 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-27 interverteb Interverteb 00:00: ral disc ral Disc 00 without without myelopathy Myelopathy History of History of Problem Active 2011-06 cardiovascu Cardiovascu 07-27 lar disease lar Disease 00:00: 00 Procedures Procedure Date / Time Performed Performing Clinician Devic e MAMMO, diagnostic, digital, 2020-04-15 00:00:00 bilateral ELECTROCARDIOGRAM COMPLETE 2019-08-28 00:00:00 evoked potential 2019-08-28 00:00:00 MAMMO, screening, digital, 2019-04-02 00:00:00 bilateral evoked potential 2019-01-11 00:00:00 ELECTROCARDIOGRAM COMPLETE 2018-10-11 00:00:00 MAMMO, screening, digital, 2018-03-31 00:00:00 bilateral SHOULDER JOINT SURGERY 2016-12-31 00:00:00 Shoulder Arthroscopy (Surg) 2016-12-31 00:00:00 Shoulder Surgery 2016-06-13 00:00:00 Cholecystectomy 2013-06-13 00:00:00 Breast Augmentation 1995-06-13 00:00:00 Hysterectomy 1991-06-13 00:00:00 Hysterectomy 1991-06-13 00:00:00 Appendectomy 1982-06-13 00:00:00 Cholecystectomy Results Test Description Test Time Test Comments Text Results Atomic Results Result Comments visual acuity 2020-04-15 08:41:04 Test Item Value Reference Range Comments R Eye Corrected (test code = R Eye Corrected) 20/25 L Eye Corrected (test code = L Eye Corrected) 20/25 Comprehensive metabolic 2000 panel - Serum or [id number] 00:00:00 Test Item Value Reference Range Comments Glucose [Mass/volume] in Serum or Plasma 134 mg/dL 65-99 (test code = 2345-7) Urea nitrogen [Mass/volume] in Serum or 14 mg/dL 6-24 Plasma (test code = 3094-0) Creatinine [Mass/volume] in Serum or Plasma 1.43 mg/dL 0.57 -1.00 (test code = 2160-0) eGFR if nonafricn AM (test code = eGFR if 40 mL/min/1.73 >5 9 nonafricn AM) eGFR if africn AM (test code = eGFR if africn 46 mL/min/1.73 >59 AM) Urea nitrogen/Creatinine [Mass Ratio] in 10 9-23 Serum or Plasma (test code = 3097-3) Sodium [Moles/volume] in Serum or Plasma 139 mmol/L 134-144 (test code = 2951-2) Potassium [Moles/volume] in Serum or Plasma 3.8 mmol/L 3.5- 5.2 (test code = 2823-3) Chloride [Moles/volume] in Serum or Plasma 98 mmol/L 96-10 6 (test code = 2075-0) Carbon dioxide, total [Moles/volume] in Serum 20 mmol/L 20 -29 or Plasma (test code = 2027-9) Calcium [Mass/volume] in Serum or Plasma 9.6 mg/dL 8.7-10. 2 (test code = 32882-7) Protein [Mass/volume] in Serum or Plasma 8.1 g/dL 6.0-8.5 (test code = 2885-2) Albumin [Mass/volume] in Serum or Plasma 4.5 g/dL 3.8-4.9 (test code = 1751-7) Globulin [Mass/volume] in Serum by 3.6 g/dL 1.5-4.5 calculation (test code = 52861-5) Albumin/Globulin [Mass Ratio] in Serum or 1.3 1.2-2. 2 Plasma (test code = 1759-0) Bilirubin.total [Mass/volume] in Serum or 0.2 mg/dL 0.0-1. 2 Plasma (test code = 1974-2) Alkaline phosphatase [Enzymatic 141 IU/L 39-117 activity/volume] in Serum or Plasma (test code = 6768-6) Aspartate aminotransferase [Enzymatic 22 IU/L 0-40 activity/volume] in Serum or Plasma (test code = 1920-8) CBC W Auto Differential panel - [id number] 09:52:00 Test Item Value Reference Range Comments WBC (test code = WBC) 9.4 K/uL 4.1-10.9 lym% (test code = lym%) 33.9 % 10.0-58.5 lym# (test code = lym#) 3.2 % 0.6-4.1 mxd# (test code = mxd#) 1.3 % 0.0-1.8 mxd% (test code = mxd%) 14.2 % 0.1-24.0 gran (test code = gran) 4.9 % 2.0-7.8 gran% (test code = gran%) 51.9 % 37.0-92.0 RBC (test code = RBC) 4.60 M/uL 4.20-6.30 HGB (test code = HGB) 13.2 g/dL 14.1-18.1 HCT (test code = HCT) 40.5 % 34.5-53.7 MCV (test code = MCV) 88.0 fL 80.0-97.0 MCH (test code = MCH) 28.7 pg 26.0-32.0 MCHC (test code = MCHC) 32.6 g/dL 31.0-36.0 RDW (test code = RDW) 13.7 % 11.5-14.5 plt (test code = plt) 269 K/uL 140-440 MPV (test code = MPV) 9.1 fL 0.0-99.8 CBC W Auto Differential panel - [id number] 09:52:00 Test Item Value Reference Range Comments WBC (test code = WBC) 9.4 K/uL 4.1-10.9 lym% (test code = lym%) 33.9 % 10.0-58.5 lym# (test code = lym#) 3.2 % 0.6-4.1 mxd# (test code = mxd#) 1.3 % 0.0-1.8 mxd% (test code = mxd%) 14.2 % 0.1-24.0 gran (test code = gran) 4.9 % 2.0-7.8 gran% (test code = gran%) 51.9 % 37.0-92.0 RBC (test code = RBC) 4.60 M/uL 4.20-6.30 HGB (test code = HGB) 13.2 g/dL 14.1-18.1 HCT (test code = HCT) 40.5 % 34.5-53.7 MCV (test code = MCV) 88.0 fL 80.0-97.0 MCH (test code = MCH) 28.7 pg 26.0-32.0 MCHC (test code = MCHC) 32.6 g/dL 31.0-36.0 RDW (test code = RDW) 13.7 % 11.5-14.5 plt (test code = plt) 269 K/uL 140-440 MPV (test code = MPV) 9.1 fL 0.0-99.8 lipid panel, [id number] 09:48:00 Test Item Value Reference Range Comments TC (<200 mg/dL) (test code = TC (<200 mg/dL)) 174 mg/dL <2 00 mg/dL HDL (40-60 mg/dL) (test code = HDL (40-60 mg/dL)) 44 mg/dL 40-60 mg/dL trig (<150 mg/dL) (test code = trig (<150 mg/dL)) 147 mg/dL <150 mg/dL LDL (<100 mg/dL) (test code = LDL (<100 mg/dL)) 100 mg/dL <100 non-HDL (<130 mg/dL) (test code = non-HDL (<130 130 mg/dL <130 mg/dL mg/dL)) TC/HDL ratio (4.5 or less) (test code = TC/HDL 3.9 mg/dL 4 .5 or less ratio (4.5 or less)) 10yr CHD risk (test code = 10yr CHD risk) % test code: 319900 (test code = test code: 291856) lipid panel, [id number] 09:48:00 Test Item Value Reference Range Comments TC (<200 mg/dL) (test code = TC (<200 mg/dL)) 174 mg/dL <2 00 mg/dL HDL (40-60 mg/dL) (test code = HDL (40-60 mg/dL)) 44 mg/dL 40-60 mg/dL trig (<150 mg/dL) (test code = trig (<150 mg/dL)) 147 mg/dL <150 mg/dL LDL (<100 mg/dL) (test code = LDL (<100 mg/dL)) 100 mg/dL <100 non-HDL (<130 mg/dL) (test code = non-HDL (<130 130 mg/dL <130 mg/dL mg/dL)) TC/HDL ratio (4.5 or less) (test code = TC/HDL 3.9 mg/dL 4 .5 or less ratio (4.5 or less)) 10yr CHD risk (test code = 10yr CHD risk) % test code: 904787 (test code = test code: 596241) visual [id number] 08:17:36 Test Item Value Reference Range Comments R Eye Uncorrected (test code = R Eye Uncorrected) 20/50 L Eye Uncorrected (test code = L Eye Uncorrected) n/a R Eye Corrected (test code = R Eye Corrected) 20/40 L Eye Corrected (test code = L Eye Corrected) n/a CBC W Auto Differential panel - [id number] 08:28:00 Test Item Value Reference Range Comments WBC (test code = WBC) 7.7 K/uL 4.1-10.9 lym% (test code = lym%) 39.4 % 10.0-58.5 lym# (test code = lym#) 3.0 % 0.6-4.1 mxd# (test code = mxd#) 0.9 % 0.0-1.8 mxd% (test code = mxd%) 11.4 % 0.1-24.0 gran (test code = gran) 3.8 % 2.0-7.8 gran% (test code = gran%) 49.2 % 37.0-92.0 RBC (test code = RBC) 4.40 M/uL 4.20-6.30 HGB (test code = HGB) 12.1 g/dL 14.1-18.1 HCT (test code = HCT) 39.0 % 34.5-53.7 MCV (test code = MCV) 88.7 fL 80.0-97.0 MCH (test code = MCH) 27.5 pg 26.0-32.0 MCHC (test code = MCHC) 31.0 g/dL 31.0-36.0 RDW (test code = RDW) 15.0 % 11.5-14.5 plt (test code = plt) 269 K/uL 140-440 MPV (test code = MPV) 8.1 fL 0.0-99.8 visual [id number] 09:11:25 Test Item Value Reference Range Comments R Eye Uncorrected (test code = R Eye Uncorrected) 20/40 L Eye Uncorrected (test code = L Eye Uncorrected) n/a R Eye Corrected (test code = R Eye Corrected) 20/30 L Eye Corrected (test code = L Eye Corrected) n/a Assessments Condition Name Status Diagnosis Date Treating Clinici an Adult health examination Active 2020-04-15 08:09:43 Active or passive immunization Active 2020-04-15 08:09: 43 Screening for malignant neoplasm of Active 2020-04-15 0 8:09:43 colon Screening for cardiovascular system 2020-04-15 0 8:09:43 disease Screening for mental disorders 2020-04-15 09:07: 31 Primary malignant neoplasm of female 2020-04-15 09:32:05 breast Screening for malignant neoplasm of 2020-04-15 0 9:39:01 cervix Lumbosacral spondylosis without Active 2020-03-11 11:03 :54 myelopathy Lumbar radiculopathy Active 2020-03-11 11:03:54 Iliotibial band friction syndrome Active 2020-03-11 11: 07:11 Migraine with aura Active 2020-02-05 09:14:00 Seasonal allergic rhinitis Active 2020-02-05 09:14:06 Vaginal dryness Active 2020-02-05 09:14:18 Insomnia Active 2020-02-05 09:18:29 Long-term drug therapy Active 2019-12-13 13:28:46 Lumbosacral spondylosis without Active 2019-12-13 13:28 :46 myelopathy Lumbar radiculopathy Active 2019-12-13 13:28:46 Memory impairment Active 2019-12-05 08:42:44 Vaginal dryness Active 2019-12-05 09:29:00 Long-term drug therapy Active 2019-11-14 15:47:30 Lumbosacral spondylosis without Active 2019-11-16 09:07 :29 myelopathy Lumbar radiculopathy Active 2019-11-16 09:07:29 Urinary tract infectious disease Active 2019-09-26 12:2 2:34 Essential hypertension Active 2019-08-28 09:01:34 Chronic renal impairment Active 2019-08-28 09:01:47 Migraine with aura Active 2019-08-28 11:25:47 Syncope and collapse Active 2019-08-28 11:49:39 Memory impairment Active 2019-08-28 11:59:57 Long-term drug therapy Active 2019-08-20 08:45:21 Lumbosacral spondylosis without Active 2019-08-20 08:45 :21 myelopathy Lumbar radiculopathy Active 2019-08-20 08:46:20 Long-term drug therapy Active 2019-05-15 15:31:05 Lumbosacral spondylosis without Active 2019-05-16 16:04 :16 myelopathy Adult health examination Active 2019-04-02 08:15:02 Immunization Active 2019-04-02 08:15:02 Screening for malignant neoplasm of Active 2019-04-02 0 8:15:02 breast Screening for malignant neoplasm of Active 2019-04-02 0 8:15:02 cervix Screening for malignant neoplasm of Active 2019-04-02 0 8:15:02 colon Screening for cardiovascular system Active 2019-04-02 0 8:15:02 disease Mixed anxiety and depressive disorder Active 2019-04-02 09:06:37 Essential hypertension Active 2019-04-02 09:12:14 Essential hypertension Active 2019-01-11 08:08:51 Seasonal allergic rhinitis Active 2019-01-11 08:35:12 Memory impairment Active 2019-01-11 08:56:09 Temporomandibular Active 2018-12-20 09:38:05 bchsu-xjud-nzayojwbgps syndrome Essential hypertension Active 2018-10-11 08:08:33 Seasonal allergic rhinitis Active 2018-10-11 08:08:35 Chronic pain syndrome Active 2018-10-02 13:07:58 Essential hypertension Active 2018-10-02 13:58:27 Essential hypertension Active 2018-07-14 08:53:28 Kidney stone Active 2018-07-14 08:53:29 Chronic pain syndrome Active 2018-07-14 08:53:35 Chronic headache disorder Active 2018-07-14 10:17:27 Adult health examination Active 2018-03-31 08:42:33 Immunization Active 2018-03-31 08:42:33 Screening for malignant neoplasm of Active 2018-03-31 0 8:42:33 breast Screening for malignant neoplasm of Active 2018-03-31 0 8:42:33 cervix Screening for malignant neoplasm of Active 2018-03-31 0 8:42:33 colon Screening for cardiovascular system Active 2018-03-31 0 8:42:33 disease Encounters Start End Encounter Admission Attending Care Care Encounter Date/Time Date/Time Type Type Clinicians Facility Department ID 2020-04-15 2020-04-15 [facility] [id number]_ 00:00:00 00:00:00 [facility] MD: [address] [place] [address] , Ph. 2020-03-11 2020-03-11 [facility] [id number] 00:00:00 00:00:00 [facility] PA-C: [address] [place] [address] , Ph. 2020-02-05 2020-02-05 [facility] 00:00:00 00:00:00 BRANDEE Celis: [facility] [address] [place] [address] , Ph. 2019-12-12 2019-12-12 [facility] 87 [id number] 00:00:00 00:00:00 [facility] 17052 PA-C: [address] [place] [address] , Ph. 2019-12-05 2019-12-05 [facility] 00:00:00 00:00:00 [facility] [address] [facility] Medical MD: [address] [place] [address] , Ph. 2019-11-16 2019-11-16 [facility] 87 [id number] 00:00:00 00:00:00 [facility] [address]20 PA-C: [address] [place] [address] , Ph. 2019-09-26 2019-09-26 [facility] 3819_ 00:00:00 00:00:[address] [address] , Ph. 2019-08-28 2019-08-28 [facility] 00:[facility]:00 00:00:[address] [place] [address] , Ph. 2019-08-20 2019-08-20 [facility] 87 [id number] 00:00:00 00:00:00 [facility] [address]70 PA-C: [address] [place] [address] , Ph. 2019-05-16 2019-05-16 [facility] 87 [id number] 00:00:00 00:00:00 [facility] 18643 PA-C: [address] [place] [address] , Ph. 2019-04-02 2019-04-02 [facility] 3819_ 00:00:00 00:00:00 [place] [address] Rosa Vo MD: [address] [place] [address] , Ph. 2019-01-11 2019-01-11 [facility] 3819_ 00:00:00 00:00:00 [place] [address] Rosa Vo MD: [address] [place] [address] , Ph. 2018-12-20 2018-12-20 [facility] 3819_ 00:00:00 00:00:00 [place] [address] Rosa Vo MD: [address] [place] [address] , Ph. 2018-10-11 2018-10-11 [facility] 3819_ 00:00:00 00:00:00 [facility] [address], Medical Medical MD: [address] [place] [address] , Ph. 2018-10-02 2018-10-02 [facility] 00:00:00 00[facility]00[facility]00 [facility]: [address] [place] [address] , Ph. 2018-07-14 2018-07-14 [facility] 3819_ 00:00:00 00[facility]00:00 [facility]: [address] [place] [address] , Ph. 2018-03-31 2018-03-31 [facility] 3819_ 00:00:00 00:00:00 [facility] MD: [address] [place] [address] , Ph. Immunizations Ordered Immunization Filled Immunization Date Status Commen ts Refusal Name Name Reason Influenza, 2020-04-15 Completed injectable, MDCK, 08:47:00 quadrivalent Influenza, 2019-04-02 Completed injectable, MDCK, 08:33:00 preservative free, quadrivalent influenza, 2018-04-13 Completed injectable, 00:00:00 quadrivalent influenza, 2018-03-31 Completed injectable, 09:28:00 quadrivalent, preservative free influenza, 2017-03-25 Completed unspecified 00:00:00 formulation Influenza, 2017-03-17 Completed injectable, MDCK, 09:34:00 preservative free, quadrivalent influenza, seasonal, 2016-03-24 Completed injectable, 09:45:00 preservative free influenza, 2016-03-12 Completed injectable, 00:00:00 quadrivalent Td (adult), adsorbed 2016-02-11 Completed 12:30:00 Influenza, 2015-03-05 Completed injectable, MDCK, 11:00:00 preservative free influenza, 2014-04-09 Completed unspecified 00:00:00 formulation pneumococcal Unknown Completed polysaccharide PPV23 zoster recombinant Unknown Completed Plan of Treatment Planned Activity Planned Date Details Comments Future Appointment 2020-06-02 14:40:00 Rona Hopkins, [address] [facility]; , [place] [address] Future Appointment 2020-05-15 00:00:00 Jessica Celis, [address]; , [place] [address] Social History Smoking Status Start Date Stop Date Never Smoker Vital Signs Vital Name Observation Time Observation Value Comments BP Diastolic 2020-04-15 00:00:00 104 mm[Hg] Height 2020-04-15 00:00:00 62 [in_i] BMI (Body Mass Index) 2020-04-15 00:00:00 33.3 kg/m2 BP Systolic 2020-04-15 00:00:00 157 mm[Hg] Body Weight 2020-04-15 00:00:00 182 [lb_av] Height 2020-03-11 00:00:00 62 [in_i] BMI (Body Mass Index) 2020-03-11 00:00:00 33.1 kg/m2 Body Weight 2020-03-11 00:00:00 181 [lb_av] BP Diastolic 2020-02-05 00:00:00 86 mm[Hg] Height 2020-02-05 00:00:00 62 [in_i] BMI (Body Mass Index) 2020-02-05 00:00:00 33.3 kg/m2 BP Systolic 2020-02-05 00:00:00 130 mm[Hg] Body Weight 2020-02-05 00:00:00 182.2 [lb_av] Height 2019-12-12 00:00:00 62 [in_i] BMI (Body Mass Index) 2019-12-12 00:00:00 34 kg/m2 Body Weight 2019-12-12 00:00:00 186 [lb_av] BP Systolic 2019-12-05 00:00:00 120 mm[Hg] Body Weight 2019-12-05 00:00:00 186 [lb_av] BP Diastolic 2019-12-05 00:00:00 77 mm[Hg] Height 2019-12-05 00:00:00 62 [in_i] BMI (Body Mass Index) 2019-12-05 00:00:00 34 kg/m2 Body Weight 2019-11-16 00:00:00 193 [lb_av] Height 2019-11-16 00:00:00 62 [in_i] BMI (Body Mass Index) 2019-11-16 00:00:00 35.3 kg/m2 Height 2019-09-26 00:00:00 62 [in_i] BP Diastolic 2019-08-28 00:00:00 77 mm[Hg] Height 2019-08-28 00:00:00 62 [in_i] BMI (Body Mass Index) 2019-08-28 00:00:00 34.8 kg/m2 BP Systolic 2019-08-28 00:00:00 119 mm[Hg] Body Weight 2019-08-28 00:00:00 190 [lb_av] Height 2019-08-20 00:00:00 62 [in_i] BMI (Body Mass Index) 2019-08-20 00:00:00 36.6 kg/m2 Body Weight 2019-08-20 00:00:00 200 [lb_av] Height 2019-05-16 00:00:00 62 [in_i] BMI (Body Mass Index) 2019-05-16 00:00:00 36.6 kg/m2 Body Weight 2019-05-16 00:00:00 200 [lb_av] BP Diastolic 2019-04-02 00:00:00 76 mm[Hg] Height 2019-04-02 00:00:00 62 [in_i] BMI (Body Mass Index) 2019-04-02 00:00:00 35.8 kg/m2 BP Systolic 2019-04-02 00:00:00 112 mm[Hg] Body Weight 2019-04-02 00:00:00 195.6 [lb_av] BP Diastolic 2019-01-11 00:00:00 78 mm[Hg] Height 2019-01-11 00:00:00 62 [in_i] BMI (Body Mass Index) 2019-01-11 00:00:00 36.3 kg/m2 BP Systolic 2019-01-11 00:00:00 115 mm[Hg] Body Weight 2019-01-11 00:00:00 198.4 [lb_av] BP Diastolic 2018-12-20 00:00:00 80 mm[Hg] Height 2018-12-20 00:00:00 62 [in_i] BMI (Body Mass Index) 2018-12-20 00:00:00 36.1 kg/m2 BP Systolic 2018-12-20 00:00:00 126 mm[Hg] Body Weight 2018-12-20 00:00:00 197.2 [lb_av] BP Diastolic 2018-10-11 00:00:00 105 mm[Hg] Height 2018-10-11 00:00:00 62 [in_i] BMI (Body Mass Index) 2018-10-11 00:00:00 35.3 kg/m2 BP Systolic 2018-10-11 00:00:00 171 mm[Hg] Body Weight 2018-10-11 00:00:00 193 [lb_av] BP Diastolic 2018-10-02 00:00:00 94 mm[Hg] Height 2018-10-02 00:00:00 62 [in_i] BMI (Body Mass Index) 2018-10-02 00:00:00 35.4 kg/m2 BP Systolic 2018-10-02 00:00:00 135 mm[Hg] Body Weight 2018-10-02 00:00:00 193.6 [lb_av] BP Diastolic 2018-07-14 00:00:00 93 mm[Hg] Height 2018-07-14 00:00:00 62 [in_i] BMI (Body Mass Index) 2018-07-14 00:00:00 35.6 kg/m2 BP Systolic 2018-07-14 00:00:00 156 mm[Hg] Body Weight 2018-07-14 00:00:00 194.4 [lb_av] BP Diastolic 2018-03-31 00:00:00 89 mm[Hg] Height 2018-03-31 00:00:00 62 [in_i] BMI (Body Mass Index) 2018-03-31 00:00:00 35.2 kg/m2 BP Systolic 2018-03-31 00:00:00 141 mm[Hg] Body Weight 2018-03-31 00:00:00 192.2 [lb_av] Hospital Discharge Instructions 1. Adult health examination well visit, women 50 to 65: care instructions visual acuity A healthy lifestyle: care instructions heart-healthy diet: care instructions eating healthy foods: care instructions 2. Active or passive immunization immunization: what you need to know pneumococcal polysaccharide vaccine: what you need to know Flucelvax Quad [id number] 60 mcg (15 mcg x 4)/0.5 mL intramuscular susp influenza (flu) vaccine: care instructions Shingrix (PF) 50mcg/0.5 mL intramuscular suspension, kit 3. Screening for malignant neoplasm of colon colon cancer screening: care instructions fecal occult blood, stool 4. Screening for cardiovascular system disease A healthy heart: care instructions taking aspirin and other antiplatelets safely: care instructions reducing risk of another heart attack with medicine: care instructions 5. Screening for mental disorders anxiety disorder: care instructions learning about depression learning about mood disorders 6. Primary malignant neoplasm of female breast mammogram screening patient instructions learning about breast cancer screening MAMMO, diagnostic, digital, bilateral7. Screening for malignant neoplasm of cervix pelvic exam: care instructions Discussion Note Patient verbalized understanding and agreement with recommended care plan. All questions and concerns were addressed and answered adequately. Follow up visit will address hld, nodual left mid back and htn.1. Lumbosacral spondylosis without myelopathy OxyContin 20 mg tablet,crush resistant,extended release OxyContin 20 mg tablet,crush resistant,extended release OxyContin 20 mg tablet,crush resistant,extended release 2. Lumbar radiculopathy topiramate 50 mg tablet 3. Iliotibial band friction syndrome physical therapy referral Discussion Note: None recorded. Patient educational handouts: No information available.1. Migraine with aura migraine headache: care instructions 2. Seasonal allergic rhinitis seasonal allergies: care instructions managing your allergies: care instructions levocetirizine 5 mg tablet 3. Vaginal dryness atrophic vaginitis: care instructions 4. Insomnia zolpidem 5 mg tablet insomnia: care instructions Discussion Note Patient verbalized understanding and agreement with recommended care plan. All questions and concerns were addressed and answered adequately. Follow up visit will address ape1. Memory impairment A healthy lifestyle: care instructions eating healthy foods: care instructions 2. Vaginal dryness Estriol atrophic vaginitis: care instructions menopause diet: care instructions Discussion Note Patient verbalized understanding and agreement with recommended care plan. All questions and concerns were addressed and answered adequately. Follow up visit will address migraine, allergy, atrophic vaginitis1. Long-term drug therapy toxicology screen, urine - Screening and confirmatory toxicology labs ordered {xx} To identify undisclosed substances such as,alcohol, unsanctioned prescription medication{xx} To reinforce therapeutic compliance to the patient and to identify the absence of prescribed medication and the potential for abuse, misuse and diversion {xx} To identify specific substances and their metabolites that are inadequately detected in presumptive UDT screen. Screening with reflex confirmation and Confirmation of Tramadol, Fentanyl, Tapentadol, Herion Metabolites, Opioids and Opiate Analogs, Propoxyphene, Skeletal Muscle relaxers, Antidepressantes, Sedatives, Alkaloids NOS, Cannaboids Synthetic, Stimulants Synthetic, Methyphenidate, Gabapentin Nonblood, Pregabalin, Antidepressants Tricyclic 2. Lumbosacral spondylosis without myelopathy Nucynta ER 50 mg tablet,extended release 3. Lumbar radiculopathy Discussion Note: None recorded. Patient educational handouts: No information av ailable.1. Essential hypertension CBC w/ auto diff lipid panel, blood high blood pressure: care instructions heart-healthy diet: care instructions low sodium diet (2,000 milligram): care instructions 2. Chronic renal impairment CMP, serum or plasma chronic kidney disease: care instructions 3. Migraine with aura rizatriptan 10 mg tablet migraine headache: care instructions neurology referral 4. Syncope and collapse electrocardiogram fainting: care instructions 5. Memory impairment evoked potential A healthy lifestyle: care instructions eating healthy foods: care instructions Discussion Note Patient verbalized understanding and agreement with recommended care plan. All questions and concerns were addressed and answered adequately. Follow up visit will address syncope, HTN1. Long-term drug therapy 2. Lumbosacral spondylosis without myelopathy OxyContin 20 mg tablet,crush resistant,extended release OxyContin 20 mg tablet,crush resistant,extended release OxyContin 20 mg tablet,crush resistant,extended release 3. Lumbar radiculopathy topiramate 25 mg tablet topiramate 50 mg tablet Discussion Note: None recorded. Patient educational handouts: No informa tion available.1. Long-term drug therapy toxicology screen, urine - Screening and confirmatory toxicology labs ordered {xx} To identify undisclosed substances such as,alcohol, unsanctioned prescription medication{xx} To reinforce therapeutic compliance to the patient and to identify the absence of prescribed medication and the potential for abuse, misuse and diversion {xx} To identify specific substances and their metabolites that are inadequately detected in presumptive UDT screen. Screening with reflex confirmation and Confirmation of Tramadol, Fentanyl, Tapentadol, Herion Metabolites, Opioids and Opiate Analogs, Propoxyphene, Skeletal Muscle relaxers, Antidepressantes, Sedatives, Alkaloids NOS, Cannaboids Synthetic, Stimulants Synthetic, Methyphenidate, Gabapentin Nonblood, Pregabalin, Antidepressants Tricyclic 2. Lumbosacral spondylosis without myelopathy OxyContin 20 mg tablet,crush resistant,extended release OxyContin 20 mg tablet,crush resistant,extended release OxyContin 20 mg tablet,crush resistant,extended release Discussion Note: None recorded. Patient educational handouts: No information available.1. Adult health examination well visit, women 50 to 65: care instructions wellness education visual acuity eating healthy foods: care instructions walking for exercise: care instructions preventing falls: care instructions preventing outdoor falls: care instructions 2. Immunization immunization: what you need to know pneumococcal polysaccharide vaccine: what you need to know Tdap (tetanus, diphtheria, pertussis) vaccine: what you need to know Flucelvax Quad [id number] (PF) 60 mcg (15 mcg x 4)/0.5 mL IM syringe influenza (flu) vaccine: care instructions Pneumovax 23 25 mcg/0.5 mL injection syringe 3. Screening for malignant neoplasm of breast mammogram screening patient instructions learning about breast cancer screening MAMMO, screening, digital, bilateral 4. Screening for malignant neoplasm of cervix learning about Pap tests human papillomavirus (HPV): care instructions gynecology referral 5. Screening for malignant neoplasm of colon colon cancer screening: care instructions 6. Screening for cardiovascular system disease A healthy heart: care instructions taking aspirin and other antiplatelets safely: careinstructions reducing heart attack risk with daily medicine: care instructions 7. Mixed anxiety and depressive disorder sertraline 25 mg tablet anxiety disorder: care instructions depression and chronic disease: care instructions 8. Essential hypertension CBC w/ auto diff BMP, serum or plasma Discussion Note Patient verbalized understanding and agreement with recommended care plan. All questions and concerns were addressed and answered adequately. Follow up visit will addresshtn, ckd, Mixed a&d,1. Temporomandibular ngvyt-degw-wastzcktllv syndrome ketorolac 60 mg/2 mL intramuscular solution baclofen 10 mg tablet temporomandibular disorder: care instructions Discussion Note Patient verbalized understanding and agreement with recommended care plan. All questions and concerns were addressed and answered adequately. Follow up visit will address htn1. Chronic pain syndrome 2. Essential hypertension dash diet: care instructions low sodium diet (2,000 milligram): care instructions high blood pressure: care instructions Discussion Note Patient verbalized understanding and agreement with recommended care plan. All questions and concerns were addressed and answered adequately. Follow up visit will address htn, allergy1. Essential hypertension high blood pressure: care instructions learning about high blood pressure propranolol 20 mg tablet 2. Kidney stone kidney stone: care instructions learningabout diet for kidney stone prevention 3. Chronic pain syndrome 4. Chronic headache disorder riza triptan 10 mg tablet Discussion Note Patient verbalized understanding and agreement with recommendedcare plan. All questions and concerns were addressed and answered adequately. Follow up visit will address htn, allergy1. Adult health examination well visit, women 50 to 65: care instructions wellness education visual acuity eating healthy foods: care instructions walking for exercise: care instructions heart-healthy diet: care instructions 2. Immunization immunization: what you need to know pneumococcal polysaccharide vaccine: what you need to know Tdap (tetanus, diphtheria, pertussis) vaccine: what you need to know Afluria Quad [id number] (PF) 60 mcg/0.5 mL intramuscular syringe influenza (flu) vaccine: care instructions 3. Screening for malignant neoplasm of breast mammogram screening patient instructions learning about breast cancer screening MAMMO, screening, digital, bilateral 4. Screening for malignant neoplasm of cervix learning about Pap tests human papillomavirus (HPV): care instructions gynecology referral 5. Screening for malignant neoplasm of colon colon cancer screening: care instructions fecal occult blood, stool 6. Screening for cardiovascular system disease A healthy heart: care instructions taking aspirin and other antiplatelets safely: care instructions reducing heart attack risk with daily medicine: care instructions Ecotrin Low Strength 81 mg tablet,enteric coated Discussion Note Patient verbalized understanding and agreement with recommended care plan. All questions and concerns were addressed and answered adequately. Follow up visit will address htn, kidney stone. oa
== END ==
LOC: WI 10:03
PROVIDERS: ATTEND Internal Medicine Geriatric Medicine
DX: N63.32 Unspecified lump in axillary tail of the left breast (principal); C50.919 Malignant neoplasm of unspecified site of unspecified female breast
CPT/HCPCS: 76642; 77066; G0279; 77062